=== PATIENT | male | born 1985 | race Caucasian/White ===

== ENCOUNTER 2020-12-21 21:14 | Emergency (ER) | payer MEDICARE, MEDICAID ==
[~2020-12-21] VITALS: Ht 180.3 cm; Wt 59.1 kg
[~2020-12-21 21:14] MED LIST: ARIP10TA33 PO; ARIP15TA3 PO; CLOZ100T PO; HYDR50TA99 PO; LEVO500T47 PO; LITH300T3 PO; SERT50TA PO
[2020-12-21 22:17] LABS: BASOPHILS % (AUTO) 1 % (0-1); EOSINOPHILS % (AUTO) 1 % (1-7); LYMPHOCYTES % (AUTO) 22 % (22-44); MEAN CORPUSCULAR HEMOGLOBIN 30.6 pg (27.5-34.5); MONOCYTES % (AUTO) 15 % (2-9); NEUTROPHILS % (AUTO) 62 % (42-75); PLATELET COUNT 236 x10^3/uL (130-400); RED BLOOD COUNT 4.82 x10^6/uL (4.38-5.82); RED CELL DISTRIBUTION WIDTH 13.9 % (9.4-14.8)
[2020-12-21 22:25] LABS: ALANINE AMINOTRANSFERASE 37 U/L (12-78); ALBUMIN 4.1 g/dL (3.4-5.0); ANION GAP 7 mmol/L (5-15); CALCIUM 8.8 mg/dL (8.5-10.1); CHLORIDE 105 mmol/L (98-107); CREATININE 0.85 mg/dL (0.7-1.3)
[2020-12-21 22:27] LABS: ALKALINE PHOSPHATASE 61 U/L (45-117); BILIRUBIN,TOTAL 2.7 mg/dL (0.2-1.0); TOTAL PROTEIN 7.4 g/dL (6.4-8.2)
[2020-12-21 22:28] LABS: SALICYLATE LEVEL 2.4 mg/dL (2.8-20.0)
--- NOTE | 2020-12-21 23:11 | NUR ---
SPOKE WITH THE PT'S FATHER, PT HAD SIMILAR EPISODE ABOUT 7 YEARS AGO AND HAD TO BE ADMITTED TO [facility] AND IT TOOK ABOUT 6 MONTHS FOR HIM TO GET OUT OF THIS STATE. PT RESPONDING TO THIS RN'S VOICE AT THIS TIME AND MOVING HEAD TO MAKE EYE CONTACT. PT NOT ABLE TO FOLLOW COMMANDS OR PROVIDE URINE SAMPLE AT THIS TIME. ERP AWARE AND OK NOT GETTING SAMPLE AT THIS TIME
--- NOTE | 2020-12-22 00:26 | NUR ---
PT A LITTLE MORE RESPONSIVE, WHEN ASKED IF THE POC IS OK, PT MADE EYE CONTACT AND NODDED. PT NOT NODDING TO ALL QUESTIONS BUT IS SELECTING WHICH QUESTIONS TO RESPOND TO. PT'S FATHER AT BEDSIDE STATED THIS IS BETTER THAN IT WAS THE FIRST TIME IT HAPPENED YEARS AGO. ERP TO GO IN AND SPEAK WITH THEM BOTH
--- NOTE | 2020-12-22 00:37 | NUR ---
PT'S FATHER UNSURE OF DOSAGES OF MEDICATIONS, PT TAKES ABILIFY AND LITHIUM. FATHER TO GET MEDICATIONS AND BRING TOMORROW
--- NOTE | 2020-12-22 00:42 | NUR ---
(FATHER- MARY LOU)
[2020-12-22] MEDS ORDERED: SODIUM CHLORIDE 0.9% 1,000 ML IV ONE (01:30)
[2020-12-22] MEDS ORDERED: POTASSIUM CHLORIDE 40 MEQ in SODIUM CHLORIDE 0.9% 500 ML IV ONE (02:00)
--- NOTE | 2020-12-22 02:07 | NUR ---
PT TURNED TO HIS LEFT SIDE IN [place], PT WHISPERING "THANK YOU SO MUCH" MULTIPLE TIMES, IV FLUIDS STARTED, NO OTHER NEEDS NOTED. IN LINE OF SIGHT OF KARIN
--- NOTE | 2020-12-22 03:44 | NUR ---
when asked to urinate pt states "i will", condom cath in place, bladder scan showed 252 ml at this time. will reattempt at a later time. in line of sight of molly
--- NOTE | 2020-12-22 04:56 | NUR ---
PT PLACED AND RESTING IN HOSP BED, NO URINE AT THIS TIME, ERP AWARE AND STATES TO CONTINUE TO WAIT AND REASSESS
--- NOTE | 2020-12-22 05:16 | NUR ---
REPORT GIVEN TO JESSICA SALINAS
--- NOTE | 2020-12-22 05:36 | NUR ---
Report from JESSICA Reaves. Pt supine, eyes covered, RR equal and unlabored. In hospital bed, VSS. Has condom cath on; no urine in bag yet. POC-need urine for tox. ERP is aware no urine available yet. Sitter in line of site; will continue to monitor.
--- NOTE | 2020-12-22 06:51 | NUR ---
Report to JESSICA Lobo
--- NOTE | 2020-12-22 07:08 | NUR ---
PT LAYING ON BACK WITH CLOTH OVER EYES. PT GRUNTED IN RESPONSE TO RN GREETING. VSS. SITTER OUSIDE ROOM IN FULL VIEW.
[2020-12-22] MEDS ORDERED: ZIPRASIDONE 20 MG INJ IM ONE ×2 (07:45→08:00)
--- NOTE | 2020-12-22 07:47 | NUR ---
PT GOT UP FROM BED AND WAS ATTEMPTING TO DRINK FROM THE SINK. SITTER AND TECH STAFF ATTEMPTED TO GET PT BACK IN BED DUE TO PT BEING UNSTEADY ON FEET. PT NOT RESPONDING TO STAFF MEMBERS AND SECURITY WAS CALLED IN TO ASSIST WITH PT.
--- NOTE | 2020-12-22 07:50 | NUR ---
PT GOT OOB WHILE STILL ATTACHED TO MONITORS, WOULD NOT RESPOND (VERBALLY OR PHYSICALLY) TO STAFF REQUESTS TO REMAIN IN BED FOR SAFETY, PT BEGAN LEANING ALL OF HIS WEIGHT FORWARD AGAINST SITTER WHILE STANDING AT FOOT OF BED REQUIRING ADDT'L STAFF & SECURITY ASSIST TO GET PT BACK TO BED. DR REN, PRIMARY RN & MEDICAL DOCTOR MD/MEDICAL DIRECTOR AWARE, PT MEDICATED PER EMAR & PLACED IN 4-PT RESTRAINTS FOR SAFETY, WILL ASSESS FREQUENTLY FOR CONTINUED USE OF RESTRAINTS. PT OFFERED COMFORT MEASURES WITH NO REPLY, HOB ELEVATED FOR COMFORT/SAFETY. PT REMAINS IN SAFE ENVIRONMENT, SITTER IN FULL VIEW.
--- NOTE | 2020-12-22 08:28 | NUR ---
EULOGIO RN: PACKET FAXED TO [facility]
--- NOTE | 2020-12-22 08:30 | NUR ---
PT RESTRAINTS REMOVED. PT CALM AND DROWSY. SITTER OUTSIDE ROOM.
--- NOTE | 2020-12-22 09:25 | NUR ---
EULOGIO RN: PACKET FAXED TO JAMAL CUMMINS, [place], [facility]
--- NOTE | 2020-12-22 09:47 | NUR ---
TP RN: WILLAM DECLINED D/T PT TAKES CLOZARIL.
--- NOTE | 2020-12-22 09:49 | NUR ---
PT PARENT BEDSIDE
--- NOTE | 2020-12-22 10:00 | NUR ---
TP RN: JAMAL CUMMINS CALLED FOR NURSE TO NURSE.
--- NOTE | 2020-12-22 10:04 | NUR ---
TP RN: ALYSSIA ACCEPTING PT.
[2020-12-22 10:18] VITALS: BP 109/68
--- NOTE | 2020-12-22 10:19 | NUR ---
RB ACCEPTING, DR CASON ACCPETING. SPOKE WITH JESSICA JIMENEZ AND GAVE PT REPORT.
--- NOTE | 2020-12-22 10:29 | NUR ---
PCS FORM AND FACESHEET FAXED TO [facility].
--- NOTE | 2020-12-22 10:54 | NUR ---
EMS TO TRANSPORT PT @1116
--- NOTE | 2020-12-22 11:08 | NUR ---
TP RN: EMS HERE FOR TRANSPORT TO [facility].
== END 2020-12-22 11:50 ==
LOC: ED 12-22 00:11 → EDIP 12-22 00:37 → UNDOADMIN 12-22 00:37
DX: F20.2 Catatonic schizophrenia (principal); F60.0 Paranoid personality disorder; F17.200 Nicotine dependence, unspecified, uncomplicated
CPT/HCPCS: 36415; 80053; 80299; 80320; 85025; 96365; 96366; 96372; 99285; J3480; J3486; J7030; J7040; 80329; G0480

== ENCOUNTER 2021-03-21 17:46 | Emergency (ER) | payer MEDICAID ==
[~2021-03-21] VITALS: Ht 182.9 cm; Wt 70.0 kg
--- NOTE | 2021-03-21 18:06 | NUR ---
Father: Aguilar Ferguson - [phone]
[2021-03-21 18:33] VITALS: BP 118/74
== END 2021-03-21 19:07 | disposition home or self-care (01) ==
LOC: MERGE 17:46 → ED 19:00
DX: F32.9 Major depressive disorder, single episode, unspecified (principal); Z72.9 Problem related to lifestyle, unspecified; F20.9 Schizophrenia, unspecified; F17.200 Nicotine dependence, unspecified, uncomplicated
CPT/HCPCS: 99283